=== PATIENT | male | born 1945 | race Caucasian/White ===

== ENCOUNTER 2024-05-15 15:43 | Emergency (ER) | payer MEDICARE, BC ==
[2024-05-15 17:58] LABS: #Basophils Less than 0.03 10x3/uL (0.0-0.2); #Neutrophils 4.64 10x3/uL (1.5-8.4); %Basophils 0.3 % (0.0-2.0); %Eosinophils 1.5 % (0.0-6.0); %Lymphocytes 21.5 % (18.0-47.0); %Monocytes 7.4 % (0.0-10.0); Hematocrit 39.4 % (38.8-50.0); Hemoglobin 12.6 g/dL (13.5-17.5); Mean Corpuscular Hemoglobin 29.2 pg (27.0-33.0); Mean Corpuscular Volume 91.4 fL (81.2-95.1); Mean Platelet Volume 10.8 fL (7.4-10.4); Platelet Count 226 10x3/uL (150-450); RBC Distribution Width 13.2 % (11.5-14.5); Red Blood Cell (RBC) Count 4.31 10x6/uL (4.32-5.72); White Blood Cell (WBC) Count 6.73 10x3/uL (3.5-10.5)
[2024-05-15 18:14] LABS: ALT (SGPT) 12 U/L (Less than 45); AST (SGOT) 18 U/L (11-34); Albumin 3.5 g/dL (3.1-4.5); Alkaline Phosphatase 107 U/L (40-110); Anion Gap 11 mmol/L (10-20); BUN (Urea Nitrogen) 23 mg/dL (8.4-25.7); Calc. Creatinine Clearance 0 mL/min (70-130); Calcium 9.5 mg/dL (7.8-10.44); Carbon Dioxide 26 mmol/L (23-31); Chloride 108 mmol/L (98-107); Estimated GFR 81; Globulin 2.9 g/dL (2.4-3.5); Glucose 147 mg/dL (83-110); Potassium 4.3 mmol/L (3.5-5.1); Protein, Total 6.4 g/dL (5.8-8.1); Sodium 141 mmol/L (136-145)
[2024-05-15 19:53] LABS: Bilirubin Neg (Negative); Blood, Urine 250 (Negative); Clarity Cloudy (Clear); Glucose, Urine (Dipstick) 100 mg/dL (Negative); Ketone, Urine 5 mg/dL (Negative); Leukocyte 500 (Negative); Nitrite Positive (Negative); Protein, Urine (Dipstick) 100 mg/dl (Neg-Trace); Specific Gravity, Urine 1.025 (1.005-1.030)
[2024-05-15 20:18] LABS: RBC/HPF Greater than 50 HPF (0-3)
[2024-05-15 20:19] LABS: Bacteria/HPF 3+ HPF (None Seen); CAUTI Indications for Culture Dysuria,urgency,freq; Squamous Epithelial 0-3 HPF (0-3); Urine Culture Reflex No No
[2024-05-15] MEDS ORDERED: Acetaminophen 325 MG TAB ONE (20:27)
== END 2024-05-15 21:33 | disposition home or self-care (01) ==
LOC: CSHERS 15:43
DX: R31.9 Hematuria, unspecified (principal); E11.9 Type 2 diabetes mellitus without complications; I48.91 Unspecified atrial fibrillation; Z79.01 Long term (current) use of anticoagulants
CPT/HCPCS: 80053; 81001; 85025; 99283